=== PATIENT | female | born 1995 | race Caucasian/White ===

== ENCOUNTER 2021-10-07 17:09 | Emergency (ER) | payer BC ==
[~2021-10-07] VITALS: Ht 160 cm; Wt 68.0 kg
[2021-10-07 17:12] VITALS: BP 117/78
[2021-10-07] MEDS ORDERED: ACETAMINOPHEN 325MG TABLET PO STA (17:26)
[2021-10-07] MEDS ORDERED: SODIUM CHLORIDE 0.9% 1,000 ML IV ONE (17:30)
[2021-10-07 17:50] LABS: BASOPHILS % 0.2 % (0.0-2.0); EOSINOPHILS % 0.7 % (0.0-5.0); HEMATOCRIT. 41.6 % (36.0-48.0); HEMOGLOBIN. 13.8 g/dL (12.0-16.0); MEAN CORPUSCULAR HEMOGLOBIN 30.9 pg (28.0-32.0); MEAN PLATELET VOLUME 7.3 fl (7.4-10.4); MONOCYTES % 4.2 % (2.0-8.0); NEUTROPHILS % 52.9 % (40.0-76.0); PLATELET 288 x1000/uL (130-400); RED BLOOD CELL COUNT 4.48 mill/uL (4.2-5.4); RED CELL DISTRIBUTION WIDTH 12.9 % (11.6-14.6)
[2021-10-07 17:57] LABS: CHLORIDE 108 mEq/L (98-107)
[2021-10-07 18:01] LABS: ETHANOL BLOOD < 10 mg/dL
[2021-10-07 18:04] LABS: HCG SCREEN NEGATIVE
[2021-10-07] MEDS ORDERED: POTASSIUM CHLORIDE 20MEQ TABLET SR PO NR (18:30)
== END 2021-10-07 20:08 | disposition home or self-care (01) ==
LOC: ER 17:09
DX: R55 Syncope and collapse (principal)
CPT/HCPCS: 36415; 70450; 72125; 80053; 80320; 82962; 84484; 84703; 85025; 93005; 96360; 99285; J7030; G0480